=== PATIENT | male | born 1950 | race Caucasian/White ===

== ENCOUNTER → 2019-04-29 | Outpatient (CLI) | payer BC ==
[~2019-04-29] VITALS: Ht 178 cm; Wt 70.0 kg
[~2019-04-29] MED LIST: CATHETER FLUSH 10 ML SYR IV PRN
[2019-04-29 13:07] VITALS: BP 140/67
--- NOTE | 2019-04-29 18:36 | STRESS TEST ---
DATE OF SERVICE: 04/29/2019 EXERCISE MYOVIEW STRESS TEST REPORT REFERRING PHYSICIAN: [facility]. Baseline heart rate is 63. Baseline blood pressure 157/73. Baseline EKG is sinus rhythm with no ischemic changes. In summary, the patient was injected with 10.37 mCi of technetium-99 Myoview and the resting images were obtained. Then, the patient started exercising with a baseline heart rate, blood pressure and EKG mentioned above. The patient was able to exercise for 4 minutes 15 seconds on standard Manoj protocol. With peak exercise level, blood pressure was 214/47. EKG was showing minimal nondiagnostic changes. He was injected with a stress dose of 29.3 mCi of technetium-99 Myoview. Throughout the test, there were no EKG changes were noted. The resting and stress images were reviewed and compared in the short axis, horizontal long axis, and vertical long axis views. Review of the images showed good radiotracer uptake with no significant ischemia or infarction was seen. SSS is 4, SDS 2, TID value 1.05. On the gated images, the left ventricle appeared to be in normal size with normal contractility. Calculated ejection fraction 66%. CONCLUSION: 1. Fair exercise tolerance, a total of 4 minutes 15 seconds on standard Manoj protocol, total of 6 METS achieving 86% of maximum expected heart rate. 2. Severe hypertensive response to exercise with peak blood pressure 214/47 returned to baseline during recovery. 3. Minimal nondiagnostic EKG changes with exercise returned to baseline during recovery. 4. No ischemia or infarction on SPECT images. 5. Normal left ventricular size with normal contractility. Calculated ejection fraction 66%. Job ID: [id number] DocumentID: [id number] Dictated Date: 04/29/2019 16:19:07 Credit Rating Checker Date: 04/29/2019 18:35:43 Dictated By: CUAUHTEMOC HAMILTON MD
== END ==
LOC: CARD 08:30
PROVIDERS: ATTEND Internal Medicine Cardiovascular Disease
DX: I10 Essential (primary) hypertension (principal); Z82.49 Family history of ischemic heart disease and other diseases of the circulatory system; Z72.0 Tobacco use
CPT/HCPCS: 78452; 93017; 93306

== ENCOUNTER 2021-09-22 20:11 | Emergency (ER) | payer BC ==
[~2021-09-22] VITALS: Ht 177.8 cm; Wt 70.3 kg
[2021-09-22] MEDS ORDERED: oxyCODONE/APAP 5/325MG (PERCOCET 5) TABLET PO STA (20:21)
--- NOTE | 2021-09-22 20:29 | ED Lower Extremity ---
General Chief Complaint: Lower Extremity Stated Complaint: R FOOT PAIN Nursing Triage Note: Pt c/o right foot pain after dropping a trailer on it. Swelling and an abrasion noted to top of foot. Denies any other injury. Unsure of last tetanus. Source: patient, family History of Present Illness Date Seen by Provider: Sep 22, 2021 Time Seen by Provider: 20:13 Initial Comments 71-year-old male presenting with injury to his right foot. He was wearing slides and had been trying to move a trailer with came down on his foot. He states he was trying to pull his foot out to keep it from getting crushed but it still got partially caught by the trailer. He has pain and swelling to his right foot. There is also a skin tear on the top of his right foot. He is unsure of his last tetanus booster. He has not taken anything for pain. He has not been elevating his foot since the injury. They drove from [address] to the emergency department right after the accident happened. He states that the pain is 10 out of 10 and that he usually needs a maximum dose of pain medicine due to tolerance. He states he has had several hip surgeries and they had given him Percocet which was working initially but then it stopped working. Location Injury Occurred: home Onset: just prior to arrival Pain/Injury Location: right foot Method of Injury: direct blow Modifying Factors: Worse With Movement Allergies and Home Medications Allergies Coded Allergies: No Known Drug Allergies (Unverified , 04/29/19) Patient Home Medication List Home Medication List Reviewed: Yes Oxycodone HCl/Acetaminophen (Oxycodone-Acetaminophen 10-325) 10 Mg-325 Mg Tablet, 1 EACH PO Q6H PRN for PAIN-SEVERE (8-10) Prescribed by: HUNG MURRAY on 09/22/212102 Review of Systems Constitutional: No chills, No fever EENTM: no symptoms reported Respiratory: cough (chronic cough from COPD) Cardiovascular: no symptoms reported Gastrointestinal: no symptoms reported Genitourinary: no symptoms reported Musculoskeletal: see HPI Skin: see HPI Psychiatric/Neurological: Denies Numbness, Denies Paresthesia Past Samhbue-Mvmjnp-Xvcafh Hx Patient Social History Tobacco Use?: Yes Tobacco type used: Cigarettes Smoking Status: Current Everyday Smoker Use of E-Cig and/or Vaping dev: No Substance use?: No Alcohol Use?: Yes Alcohol Frequency: Once in a while Pt feels they are or have been: No Immunizations Up To Date First/Initial COVID19 Vaccinat: J&J Second COVID19 Vaccination Grye: J&J Past Medical History Surgeries: Yes Orthopedic Respiratory: Yes COPD Physical Exam Vital Signs Vital Signs - First Documented 09/22/21 20:15 Temp 36.5 Pulse 97 Resp 17 B/P (MAP) 143/53 (83) Pulse Ox 96 O2 Delivery Room Air Capillary Refill : Less Than 3 Seconds Height, Weight, BMI Height: '" Weight: lbs. oz. kg; 22.00 BMI Method: General Appearance: WD/WN, no apparent distress Cardiovascular: normal peripheral pulses Feet: right foot abrasions/lacerations (Skin tear to the top of his right foot with bleeding controlled. Soft tissue swelling and tenderness of the foot. 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, no motor/sensory deficits, alert, oriented x 3 Skin: warm/dry, other (Skin tear to the top of his right foot with bleeding controlled.) Progress/Results/Core Measures Results/Orders My Orders Orders - HUNG MURRAY MD Foot 3 View Right (09/22/21 20:21) Ice: Apply To Affected Area (09/22/21 20:21) Elevate Affected Extremity (09/22/21 20:21) Wound Dressing-Ed (09/22/21 20:21) Oxycodone/Apap 5/325mg Tablet (Percocet (09/22/21 20:21) Dipht,Pertuss(Acell),Tet Adult (Boostrix (09/22/21 20:30) Crutches (09/22/21 20:46) Orthopedic Equiment (09/22/21 20:46) Ed Ortho/Other Supplies Order (09/22/21 20:46) Rx-Oxycodone/Apap 5-325 Mg (Rx-Percocet (09/22/21 21:00) Medications Given in ED Current Medications Medications Dose Ordered Sig/Maria Esther Route Start Time Stop Time Status Last Admin Dose Admin Diphtheria/ Tetanus/Acell Pertussis 0.5 ml ONCE ONCE IM 09/22/21 20:30 09/22/21 20:31 DC 09/22/21 20:29 0.5 ML Oxycodone/ Acetaminophen 1 ea Q4H PRN PO 09/22/21 21:00 09/22/21 21:12 DC 09/22/21 21:00 1 EA Vital Signs/I&O 09/22/21 09/22/21 20:15 21:08 Temp 36.5 36.5 Pulse 97 97 Resp 17 17 B/P (MAP) 143/53 (83) 143/53 Pulse Ox 96 96 O2 Delivery Room Air Room Air Blood Pressure Mean: 83 Progress Progress Note #1: Progress Note Order tetanus update as well as Percocet for pain. X-rays of the foot to look for signs of acute bony injury. Ice and elevation to help with pain and swelling. Clean the skin tear and apply nonstick dressing. Progress Note #2: Progress Note X-rays demonstrate distal third and fourth metatarsal fractures. There are minimally displaced. We will treat with a walking boot and crutches for weightbearing as tolerated. Continue pain medicine. Ice and elevate the foot to help with pain and swelling. Keep the skin tear clean with soap and water and covered with a nonstick dressing. Follow-up with orthopedics for management of the fractures and to ensure they are healing. Diagnostic Imaging Diagonstic Imaging: Xray Plain Films/CT/US/NM/MRI: other (Right foot) Comments NAME: MELY [facility]S [facility] REC#: [id number] PT STATUS: REG ER : 1950 PHYSICIAN: HUNG MURRAY MD ADMIT DATE: 09/22/21/ER FS Draft Date of Exam:09/22/21 FOOT 3 VIEW RIGHT INDICATION: Crush injury. FINDINGS: Horizontal fractures through the distal necks of the 3rd and 4th metatarsals. No articular injury. Tarsometatarsal joints appear unremarkable. No other fracture. IMPRESSION: Extra-articular fractures of distal necks of the 3rd and 4th metatarsals. No other injury apparent. Dictated on workstation # [id number] Dict: 09/22/212033 Trans: 09/22/212036 [facility] [id number] Interpreted by: FUNMI BARBA Electronically signed by: Reviewed: Reviewed by Me Departure Impression Primary Impression: Displaced fracture of third metatarsal bone, right foot, initial encounter for closed fracture Additional Impressions: Contusion of right foot, initial encounter Noninfected skin tear of right lower extremity Qualified Codes: S81.811A - Laceration without foreign body, right lower leg, initial encounter Crushing injury of right foot, initial encounter Displaced fracture of fourth metatarsal bone, right foot, initial encounter for closed fracture Disposition: HOME, SELF-CARE Condition: Stable Departure-Patient Inst. Decision time for Depature: 20:44 Referrals: [facility] [place] Primary Care Physician MICHELL EVANGELISTA APRN (Family) Primary Care Physician RAUDEL CHAVEZ MD Patient Instructions: Crush Injury (DC), How to Use Crutches, SKIN AVULSION, Walking Boot, Wound Care ED, Foot Fracture ED Add. Discharge Instructions: Wear the walking boot for support and management of your fractures in the foot. Wear this at all times except you can open it and remove your foot and leg to be able to wash with soap and water. Keep the skin tear wound on the top of your foot clean with soap and water and apply antibiotic ointment and a nonstick dressing. Do this at least once or twice a day. Try to elevate your foot above waist level to help with pain and swelling. Apply ice 15 to 20 minutes every few hours as needed for pain and swelling. Crutches for weightbearing as tolerated. Follow-up with primary or orthopedics about the fractures and to monitor the healing process. All discharge instructions reviewed with patient and/or family. Voiced understanding. Scripts Oxycodone HCl/Acetaminophen (Oxycodone-Acetaminophen 10-325) 10 Mg-325 Mg Tablet 1 EACH PO Q6H PRN for PAIN-SEVERE (8-10) MDD 3 for 5 Days, #20 TAB 0 Refills Prov: HUNG MURRAY MD 09/22/21 HUNG MURRAY MD Sep 22, 2021 20:29
[2021-09-22] MEDS ORDERED: TETANUS,DIPTH,PERTUSS P/F (BOOSTRIX) 0.5 ML VIAL IM ONE (20:30)
--- NOTE | 2021-09-22 20:37 | Diagnostic Imaging Report ---
INDICATION: Crush injury. FINDINGS: Horizontal fractures through the distal necks of the 3rd and 4th metatarsals. No articular injury. Tarsometatarsal joints appear unremarkable. No other fracture. IMPRESSION: Extra-articular fractures of distal necks of the 3rd and 4th metatarsals. No other injury apparent. Dictated by: Dictated on workstation # [id number]
[2021-09-22] MEDS ORDERED: RX-OXYCODONE/APAP 5-325 MG #4 TAB PK PO PRN (21:00)
[2021-09-22] MEDS ORDERED: OXYC-556 PO (21:02)
[2021-09-22 21:08] VITALS: BP 143/53
== END 2021-09-22 21:08 | disposition home or self-care (01) ==
LOC: EDUNIT# 20:11 → ER FS 20:12
DX: S97.81XA Crushing injury of right foot, initial encounter (principal); S92.331A Displaced fracture of third metatarsal bone, right foot, initial encounter for closed fracture; F17.210 Nicotine dependence, cigarettes, uncomplicated; Z23 Encounter for immunization; W23.0XXA Caught, crushed, jammed, or pinched between moving objects, initial encounter
CPT/HCPCS: 73630; 90715

== ENCOUNTER → 2021-09-28 | Outpatient (CLI) | payer BC ==
[~2021-09-28] MED LIST changes: -CATHETER FLUSH 10 ML SYR IV PRN; +OXYC-556 PO
== END ==
LOC: ORTHO 14:00
PROVIDERS: ATTEND Orthopaedic Surgery
DX: S92.331D Displaced fracture of third metatarsal bone, right foot, subsequent encounter for fracture with routine healing (principal); S92.341D Displaced fracture of fourth metatarsal bone, right foot, subsequent encounter for fracture with routine healing; X58.XXXD Exposure to other specified factors, subsequent encounter

== ENCOUNTER → 2021-10-17 | Outpatient (CLI) | payer BC ==
--- NOTE | 2021-10-17 12:48 | Diagnostic Imaging Report ---
INDICATION: Right foot fractures, follow-up. TIME OF EXAM: 10:14 AM Correlation is made with prior radiographs from 09/22/2021. Fractures involving the necks of the 3rd and 4th metatarsals again noted. Fracture lines remain clearly visible. Alignment is anatomic. No significant displacement or angulation is seen. Remaining metatarsals and phalanges are intact. Midfoot and hindfoot are unremarkable. There is some dorsal soft tissue swelling. IMPRESSION: No significant change in the 3rd and 4th metatarsal fractures when compared to exam from 09/22/2021. Fracture lines remain clearly visible. Dictated by: Dictated on workstation # [id number]
== END ==
LOC: ORTHO 09:49
PROVIDERS: ATTEND Orthopaedic Surgery
DX: Z47.89 Encounter for other orthopedic aftercare (principal); S92.331D Displaced fracture of third metatarsal bone, right foot, subsequent encounter for fracture with routine healing; S92.341D Displaced fracture of fourth metatarsal bone, right foot, subsequent encounter for fracture with routine healing; X58.XXXD Exposure to other specified factors, subsequent encounter
CPT/HCPCS: 73630; G0463; 99213

== ENCOUNTER → 2021-11-16 | Outpatient (CLI) | payer BC ==
--- NOTE | 2021-11-16 14:20 | Diagnostic Imaging Report ---
Indication: Fracture. Comparison is made with prior exam of 10/17/2021. 3 views were obtained FINDINGS: There are nondisplaced fractures of the distal 3rd and 4th metatarsals. There appear to be some minimal interval callus formation. No other fracture or dislocation. There are degenerative changes. IMPRESSION: No significant change in the alignment of the fractures involving the distal 3rd and 4th metatarsal. There does appear to be some minimal interval callus formation. Dictated by: Dictated on workstation # [id number]
== END ==
LOC: ORTHO 09:43
PROVIDERS: ATTEND Orthopaedic Surgery
DX: M79.671 Pain in right foot (principal)
CPT/HCPCS: 73630; G0463; 99213

== ENCOUNTER → 2021-12-21 | Outpatient (CLI) | payer BC ==
--- NOTE | 2021-12-21 14:01 | Diagnostic Imaging Report ---
Indication: Right foot pain. Comparison with 11/16/2021. FINDINGS: 3 views. The nondisplaced fractures of the distal 3rd and 4th metatarsals just below the metatarsal heads remains in good alignment. There has been progressive healing. Fracture line is not apparent on today's exam. Moderate arthritic changes of the 1st MP joint. IMPRESSION: There has been continued bony healing of the nondisplaced distal 3rd and 4th metatarsal fractures. Dictated by: Dictated on workstation # [id number]
== END | disposition home or self-care (01) ==
LOC: ORTHO 08:55
PROVIDERS: ATTEND Orthopaedic Surgery
DX: Z47.89 Encounter for other orthopedic aftercare (principal); S92.334D Nondisplaced fracture of third metatarsal bone, right foot, subsequent encounter for fracture with routine healing; S92.344D Nondisplaced fracture of fourth metatarsal bone, right foot, subsequent encounter for fracture with routine healing; X58.XXXD Exposure to other specified factors, subsequent encounter
CPT/HCPCS: 73630; G0463; 99213